=== PATIENT | male | born 1945 | race Caucasian/White ===

== ENCOUNTER 2023-11-10 08:00 | Outpatient (CLI) | payer SELFPAY | END 2023-11-10 23:59 | disposition home or self-care (01) | LOC: LAB.S 08:00 | PROVIDERS: ATTEND Nurse Practitioner | DX: R30.9 Painful micturition, unspecified (principal) | CPT/HCPCS: 87086; 87181 ==

== ENCOUNTER 2023-11-22 08:00 | Outpatient (CLI) | payer SELFPAY | END 2023-11-22 23:59 | disposition home or self-care (01) | LOC: LAB.S 08:00 | PROVIDERS: ATTEND Nurse Practitioner | DX: N39.0 Urinary tract infection, site not specified (principal) | CPT/HCPCS: 87086 ==